=== PATIENT | female | born 1995 | race Two or more races ===

== ENCOUNTER 2024-07-14 21:37 | Emergency (ER) | payer OTHER ==
[~2024-07-14] VITALS: Ht 162.6 cm; Wt 74.8 kg
[2024-07-14 22:51] VITALS: BP 106/68; TEMP 98.2; O2SAT 98
[2024-07-15] MEDS ORDERED: AZIT250T PO (01:19)
[2024-07-15] MEDS ORDERED: NEOM10DR11 RIGHT EAR (01:19)
== END 2024-07-15 01:25 | disposition home or self-care (01) ==
LOC: ER 21:41
DX: H66.91 Otitis media, unspecified, right ear (principal); R05.9 Cough, unspecified; R09.81 Nasal congestion; J02.9 Acute pharyngitis, unspecified; Z88.0 Allergy status to penicillin; Z60.2 Problems related to living alone